=== PATIENT | female | born 1955 | race Caucasian/White ===

== ENCOUNTER → 2017-01-12 | Outpatient (CLI) | payer OTHER | LOC: FLAB 14:42 → EDSTATUS 14:45 → FIMAGING 14:46 | PROVIDERS: ATTEND Family Medicine | DX: M25.511 Pain in right shoulder (principal) ==

== ENCOUNTER → 2017-03-30 | Outpatient (CLI) | payer OTHER | LOC: BRMIMAGING 13:24 | PROVIDERS: ATTEND Physician Assistant Medical | DX: Z13.820 Encounter for screening for osteoporosis (principal); M85.80 Other specified disorders of bone density and structure, unspecified site; Z78.0 Asymptomatic menopausal state; Z79.890 Hormone replacement therapy; Z82.62 Family history of osteoporosis ==